=== PATIENT | female | born 1980 | race Caucasian/White ===

== ENCOUNTER 2019-07-28 06:29 | Emergency (ER) | payer SELFPAY ==
[~2019-07-28] VITALS: Ht 160 cm; Wt 83.5 kg
[2019-07-28 06:40] VITALS: BP 139/90
[2019-07-28] MEDS ORDERED: AMOXICILLIN 500 MG CAP PO ONE (06:50)
[2019-07-28] MEDS ORDERED: LIDOCAINE VISCOUS 2% 20 ML UDC PO ONE (06:50)
== END 2019-07-28 07:00 | disposition home or self-care (01) ==
LOC: MED 06:29
DX: J02.8 Acute pharyngitis due to other specified organisms (principal); B96.89 Other specified bacterial agents as the cause of diseases classified elsewhere; I10 Essential (primary) hypertension
CPT/HCPCS: 99283

== ENCOUNTER 2019-11-13 01:08 | Emergency (ER) | payer SELFPAY ==
[~2019-11-13] VITALS: Ht 160 cm; Wt 77.1 kg
--- NOTE | 2019-11-13 01:20 | NUR ---
PT TAKEN TO BED 7
[2019-11-13 01:22] VITALS: BP 126/73
--- NOTE | 2019-11-13 01:22 | NUR ---
Dr. Wilkinson examining patient.
--- NOTE | 2019-11-13 01:22 | NUR ---
39 Y/O FEMALE BIB SELF FOR SORE THROAT, LEFT EAR PAIN, AND CONGESTION. SLIGHT REDNESS NOTED IN THE BACK OF THE THORAT; MUCOUS MEMBRANES PINK AND MOIST. PATIENT ABLE TO SPEAK IN CLEAR SENTENCES; DENIES SOB; 100% ON RA; 17 RR; PAIN IS A 6/10 PAIN STARTING FROM THE THROAT AND LEFT EAR. ERMD MADE AWARE OF STATUS. SIDE RAILSX1. WILL CONTINEU TO MONITOR. PMH:DENIES RX:DENIES NKDA SURGICAL HX:APPENDECTOMY (1997)
[2019-11-13] MEDS ORDERED: KETOROLAC 30 MG/ML VIAL IM ONE (01:30)
[2019-11-13] MEDS ORDERED: DEXAMETHASONE 10 MG/ML VIAL IM ONE (01:30)
--- NOTE | 2019-11-13 01:34 | NUR ---
STREP SAMPLE COLLECTED AND GIVEN TO LAB.
[2019-11-13 02:24] VITALS: BP 126/73
--- NOTE | 2019-11-13 02:24 | NUR ---
Patient discharged with v/s stable. Written and verbal after care instructions given and explained. Patient alert, oriented and verbalized understanding of instructions. Ambulatory with steady gait. All questions addressed prior to discharge. ID band removed. Patient advised to follow up with PMD. Rx of AZITHROMYCIN given. Patient educated on indication of medication including possible reaction and side effects. Opportunity to ask questions provided and answered.
== END 2019-11-13 02:24 | disposition home or self-care (01) ==
LOC: MED 01:08
DX: R07.0 Pain in throat (principal); H92.02 Otalgia, left ear
CPT/HCPCS: 87081; 96372; 99283; J1100; J1885

== ENCOUNTER 2019-12-08 02:54 | Emergency (ER) | payer SELFPAY ==
[~2019-12-08] VITALS: Ht 160 cm; Wt 78.0 kg
[2019-12-08 03:08] VITALS: BP 141/80
--- NOTE | 2019-12-08 03:10 | NUR ---
PT C/O SORE THROAT X 3 WEEKS. S/P Z-PAC ABX WITH NO RELIEF. LUNGS CLEAR THROUGHOUT, DIMINISHED TO RML/RLL. STATES PAIN IS 6/10, MORE SEVERE WHEN SWALLOWING. SPO2 99% ON RA. THROAT RED WITH WHITE PATCHES UPON VISUALIZATION. PMH-NONE MEDS-NONE NKA
--- NOTE | 2019-12-08 04:09 | NUR ---
PATIENT LEFT WITHOUT BEING SEEN BY DR. NEWELL. NO FURTHER CARE PROVIDED FOR PATIENT.
[2019-12-08 04:10] VITALS: BP 141/80
== END 2019-12-08 04:09 | disposition left against medical advice (07) ==
LOC: MED 02:54
DX: R07.0 Pain in throat (principal); Z53.21 Procedure and treatment not carried out due to patient leaving prior to being seen by health care provider

== ENCOUNTER 2019-12-11 21:30 | Emergency (ER) | payer SELFPAY ==
[~2019-12-11] VITALS: Ht 160 cm; Wt 78.0 kg
[2019-12-11 21:30] VITALS: BP 36/83
--- NOTE | 2019-12-11 21:30 | NUR ---
TO BED # 05 AMBULATORY
--- NOTE | 2019-12-11 21:40 | NUR ---
PT TAKEN TO BED 4
--- NOTE | 2019-12-11 21:47 | NUR ---
39 YEAR OLD FEMALE COMPLAINS OF SORE THROAT X 3 WEEK. PATIENT STATES SHE ALSO DEVELOPED A COUGH X COUPLE DAYS. LUNGS CTABL, BREATHING EVEN AND UNLABORED, SKIN WARM AND DRY. BED IN LOWEST POSITION, LOCKED, BED RAIL UPX1. PMH - DENIES ALLERGIES - NKA
--- NOTE | 2019-12-11 21:55 | NUR ---
THROAT CULTURES SEND TO LAB
[2019-12-11] MEDS ORDERED: KETOROLAC 30 MG/ML VIAL IM ONE (22:05)
[2019-12-11] MEDS ORDERED: PENICILLIN G BENZATHINE L-A 1.2 MU/2 ML SYR IM ONE (22:05)
[2019-12-11 22:45] VITALS: BP 136/83
--- NOTE | 2019-12-11 22:45 | NUR ---
Patient discharged with v/s stable. Written and verbal after care instructions about strep throat given and explained. Patient alert, oriented and verbalized understanding of instructions. Ambulatory with steady gait. All questions addressed prior to discharge. ID band removed. Patient advised to follow up with PMD. Rx of ibuprofen and prednisone given. Patient educated on indication of medication including possible reaction and side effects. Opportunity to ask questions provided and answered.
== END 2019-12-11 22:45 | disposition home or self-care (01) ==
LOC: MED 21:30
DX: J02.0 Streptococcal pharyngitis (principal)
CPT/HCPCS: 87081; 96372; 99284; J0561; J1885